=== PATIENT | female | born 1985 | race Two or more races ===

== ENCOUNTER 2019-10-31 14:26 | Inpatient (IN) | payer OTHER ==
[~2019-10-31] VITALS: Ht 172.7 cm; Wt 74.5 kg
--- NOTE | 2019-10-31 15:38 | NUR ---
PT AMBULATORY WITH STEADY GAIT TO ROOM. RYLEEN
--- NOTE | 2019-10-31 15:52 | NUR ---
34 Y/O FEMALE PRESENTS TO ED WITH C/O ABDOMINAL PAIN. PER PT "I'VE HAD SOME ABDOMINAL PAIN FOR 4 DAYS. EARLIER HE JUST BARLEY TOUCH HIS KNEE OVER MY BELLY AND THE PAIN WAS SO HORRIBLE. I STARTED CRYING." NO C/O N/V/D, TRAUMA, SYNCOPE, CP, SOB. PT PLACED ON CONT PULSE OX,NIBP. BOYFRIEND BEDSIDE.
--- NOTE | 2019-10-31 15:59 | NUR ---
UA SENT TO LAB
[2019-10-31 16:20] LABS: MICROSCOPIC NOT IND
[2019-10-31 16:25] LABS: CULTURE INDICATED? NO
[2019-10-31] MEDS ORDERED: ONDANSETRON 2MG/ML, 2ML ONE ×2 (16:53→19:00)
[2019-10-31] MEDS ORDERED: KETOROLAC 30 MG/1 ML ONE (16:53)
[2019-10-31] MEDS ORDERED: MORPHINE SULFATE 4 MG/ML, 1ML ONE (16:54)
[2019-10-31] MEDS ORDERED: MORPHINE SULFATE 4 MG/ML, 1ML IVPush PRN (17:00)
[2019-10-31] MEDS ORDERED: ONDANSETRON 2MG/ML, 2ML IVPush ONE (17:00)
[2019-10-31] MEDS ORDERED: KETOROLAC 30 MG/1 ML IVPush ONE (17:00)
--- NOTE | 2019-10-31 17:02 | NUR ---
pt resting on [facility]. ANDREA. SIGNIFICANT OTHER BEDSIDE. PIV ESTABLISHED. MEDICATIONS ADMINISTERED PER ORDER. NO OTHER NEEDS REQUESTED AT THIS TIME
[2019-10-31 17:10] LABS: BASOPHILS # (AUTO) 0.01 x10^3/uL (0-0.1); BASOPHILS % (AUTO) 0 % (0-1); EOSINOPHILS # (AUTO) 0.03 x10^3/uL (0-0.4); EOSINOPHILS % (AUTO) 0 % (1-7); LYMPHOCYTES # (AUTO) 2.31 x10^3/uL (1-3.4); LYMPHOCYTES % (AUTO) 20 % (22-44); MD NO; MEAN CORPUSCULAR HEMOGLOBIN 32.4 pg (27.0-34.8); MEAN CORPUSCULAR HGB CONC 33.3 g/dL (32.4-35.8); MEAN CORPUSCULAR VOLUME 97.4 fL (80-100); MEAN PLATELET VOLUME 8.8 fL (7.4-10.4); MONOCYTES # (AUTO) 0.19 x10^3/uL (0.2-0.8); MONOCYTES % (AUTO) 2 % (2-9); NEUTROPHILS # (AUTO) 9.05 x10^3/uL (1.8-6.8); NEUTROPHILS % (AUTO) 78 % (42-75); PLATELET COUNT 268 x10^3/uL (130-400); RED BLOOD COUNT 4.47 x10^6/uL (3.82-5.3); RED CELL DISTRIBUTION WIDTH 13.1 % (9.6-15.2)
[2019-10-31 17:23] LABS: CALCIUM 9.1 mg/dL (8.5-10.1); CHLORIDE 105 mmol/L (98-107)
[2019-10-31 17:31] LABS: ALANINE AMINOTRANSFERASE 21 U/L (12-78); ALBUMIN 4.1 g/dL (3.4-5.0); ALKALINE PHOSPHATASE 62 U/L (45-117); ANION GAP 5 mmol/L (5-15); CREATININE 0.73 mg/dL (0.55-1.02); TOTAL PROTEIN 7.7 g/dL (6.4-8.2)
--- NOTE | 2019-10-31 17:56 | NUR ---
PT BACK FROM IMAGING. NADN. SIGNIFICANT OTHER BEDSIDE. NO NEEDS REQUESTED AT THIS TIME.
--- NOTE | 2019-10-31 18:22 | NUR ---
PT RESTING ON GURSAN PERLITA. AWAITING RESULTS. NADN. NO NEEDS REQUESTED AT THIS TIME.
[2019-10-31] MEDS ORDERED: CEFOTETAN PMX 2GM/50ML 50 ML IV ONE (18:30)
[2019-10-31] MEDS ORDERED: SODIUM CHLORIDE 0.9% 1,000ML IVBOLUS ONE (18:30)
--- NOTE | 2019-10-31 18:47 | NUR ---
REPORT TO OR. PT BEING TAKEN TO OR AT THIS TIME. PT LEFT WITH ALL PERSONAL BELONGINGS AT THIS TIME.
[2019-10-31] MEDS ORDERED: SUCCINYLCHOLINE 20 MG/ML, 10ML ONE (18:50)
[2019-10-31] MEDS ORDERED: FENTANYL PF 250 MCG/5ML ONE (18:50)
[2019-10-31] MEDS ORDERED: PROPOFOL 10 MG/ML, 20ML ONE (18:50)
[2019-10-31] MEDS ORDERED: MIDAZOLAM 1 MG/ML, 2ML ONE (18:50)
[2019-10-31] MEDS ORDERED: ROCURONIUM 10MG/ML,5ML ONE (18:52)
[2019-10-31] MEDS ORDERED: CEFOTETAN PMX 2GM/50ML 50 ML ONE (18:59)
[2019-10-31] MEDS ORDERED: DEXAMETHASONE 4 MG/ML, 1ML ONE (19:00)
[2019-10-31] MEDS ORDERED: PROMETHAZINE 25 MG/ML, 1ML IV PRN (19:00)
[2019-10-31] MEDS ORDERED: LABETALOL 5MG/ML, 20ML IV PRN (19:00)
[2019-10-31] MEDS ORDERED: ONDANSETRON 2MG/ML, 2ML IV PRN (19:00)
[2019-10-31] MEDS ORDERED: MEPERIDINE/PF 25MG/ML,1ML IVPush PRN (19:00)
[2019-10-31] MEDS ORDERED: hydrALAzine 20 MG/ML, 1ML IV PRN (19:00)
[2019-10-31] MEDS ORDERED: HYDROmorphone 2 MG/ML, 1ML IVPush PRN (19:00)
[2019-10-31] MEDS ORDERED: BUPIVACAINE/PF 0.5% ONE (19:03)
[2019-10-31] MEDS ORDERED: EPINEPHRINE 1 MG/ML, 1ML ONE (19:03)
[2019-10-31] MEDS ORDERED: MEPERIDINE/PF 25MG/ML,1ML ONE (20:05)
[2019-10-31] MEDS ORDERED: OXYcodone 5 MG/5 ML ORAL.SOL UDC ONE ×2 (20:05→20:33)
[2019-10-31] MEDS: OXYcodone 5 MG/5 ML ORAL.SOL UDC PO PRN ×2 (20:15→20:37)
[2019-10-31] MEDS ORDERED: FENTANYL PF 100 MCG/2ML ONE (20:31)
[2019-10-31] MEDS: FENTANYL PF 100 MCG/2ML IV PRN ×2 (20:34→20:39)
[2019-10-31 21:30] VITALS: BP 122/70
[2019-11-01] VITALS: BP 115/71
[2019-11-01] MEDS ORDERED: ONDANSETRON 2MG/ML, 2ML IVPush PRN
[2019-11-01] MEDS ORDERED: morphine SULFATE 10 MG/ML, 1ML IVPush PRN
[2019-11-01] MEDS: HYDROcodone/APAP 5/325 TABLET PO PRN ×3 (01:12→11:42)
[2019-11-01] MEDS: LACTATED RINGERS 1,000 ML IV SCH ×2 (01:13→10:00)
[2019-11-01] MEDS: METRONIDAZOLE PMX 500MG/100ML 100 ML IV SCH ×2 (02:50→10:05)
[2019-11-01 05:42] LABS: BASOPHILS # (AUTO) 0.03 x10^3/uL (0-0.1); BASOPHILS % (AUTO) 0 % (0-1); EOSINOPHILS % (AUTO) 0 % (1-7); LYMPHOCYTES # (AUTO) 0.77 x10^3/uL (1-3.4); LYMPHOCYTES % (AUTO) 10 % (22-44); MD NO; MEAN CORPUSCULAR HEMOGLOBIN 32.3 pg (27.0-34.8); MEAN CORPUSCULAR HGB CONC 33.2 g/dL (32.4-35.8); MEAN CORPUSCULAR VOLUME 97.3 fL (80-100); MEAN PLATELET VOLUME 9.3 fL (7.4-10.4); MONOCYTES # (AUTO) 0.23 x10^3/uL (0.2-0.8); MONOCYTES % (AUTO) 3 % (2-9); NEUTROPHILS # (AUTO) 6.69 x10^3/uL (1.8-6.8); NEUTROPHILS % (AUTO) 87 % (42-75); PLATELET COUNT 220 x10^3/uL (130-400); RED BLOOD COUNT 3.74 x10^6/uL (3.82-5.3)
[2019-11-01 05:45] LABS: ANION GAP 7 mmol/L (5-15); CALCIUM 7.6 mg/dL (8.5-10.1); CHLORIDE 106 mmol/L (98-107); CREATININE 1.08 mg/dL (0.55-1.02)
[2019-11-01 06:51] VITALS: BP 120/81
[2019-11-01] MEDS ORDERED: CIPR500T87 PO (08:59)
[2019-11-01] MEDS ORDERED: HYDR-3240 PO (08:59)
[2019-11-01] MEDS ORDERED: METR500T PO (08:59)
[2019-11-01] MEDS ORDERED: CEFOTETAN PMX 1GM/50ML 50 ML IV SCH ×2 (13:00)
== END 2019-11-01 11:50 | disposition home or self-care (01) | DRG 343 ==
LOC: ED 16:07 → EDIP 18:43 → 4NE 21:30
PROVIDERS: ADMIT Surgery Vascular Surgery; ATTEND Surgery Vascular Surgery
PROC: 0DTJ4ZZ Resection of Appendix, Percutaneous Endoscopic Approach (ICD-10-PCS; principal; 2019-10-31 19:00)
DX: K35.30 Acute appendicitis with localized peritonitis, without perforation or gangrene (principal); F17.200 Nicotine dependence, unspecified, uncomplicated; Z98.51 Tubal ligation status
CPT/HCPCS: 36415; S0020; 74177; 80048; 80053; 81003; 83690; 84702; 85025; 88304; 96374; 96375; C1729; G0378; J0171; J1100; J1885; J2250; J2405; J2704; J3010; J0330; J2175; J2270; J3490; J7120